=== PATIENT | male | born 1965 ===

== ENCOUNTER 2019-05-30 15:36 | Outpatient (CLI) | payer OTHER | END 2019-05-30 16:35 | disposition home or self-care (01) | LOC: LAB 15:36 | DX: R97.20 Elevated prostate specific antigen [PSA] (principal) ==

== ENCOUNTER 2019-06-08 07:11 | Outpatient (CLI) | payer OTHER | END 2019-06-08 07:21 | disposition home or self-care (01) | LOC: SONOGRAMA 07:11 | DX: C61 Malignant neoplasm of prostate (principal); R97.20 Elevated prostate specific antigen [PSA] ==

== ENCOUNTER 2019-06-24 08:13 | Outpatient (CLI) | payer OTHER | END 2019-06-24 08:15 | disposition home or self-care (01) | LOC: NUCLEAR 08:13 | DX: C61 Malignant neoplasm of prostate (principal) | CPT/HCPCS: 78320; A9503 ==

== ENCOUNTER 2019-08-10 09:58 | Outpatient (CLI) | payer OTHER | END 2019-08-10 10:06 | disposition home or self-care (01) | LOC: LAB 09:58 | DX: N39.0 Urinary tract infection, site not specified (principal); J06.9 Acute upper respiratory infection, unspecified ==

== ENCOUNTER 2019-09-06 09:45 | Inpatient (IN) | payer OTHER ==
[~2019-09-06] VITALS: Ht 172.7 cm; Wt 87.1 kg
[2019-09-12] MEDS ORDERED: OMEPRAZOLE20 MG (13:51)
== END 2019-09-14 11:36 | disposition home or self-care (01) | DRG 708 ==
LOC: O/R 09:45 → SURH 09-12 04:54
PROVIDERS: ADMIT Urology
PROC: 07BC0ZX Excision of Pelvis Lymphatic, Open Approach, Diagnostic (ICD-10-PCS; 2019-09-12)
PROC: 0VT00ZZ Resection of Prostate, Open Approach (ICD-10-PCS; principal; 2019-09-12 07:00)
DX: C61 Malignant neoplasm of prostate (principal); R97.21 Rising PSA following treatment for malignant neoplasm of prostate; R59.0 Localized enlarged lymph nodes

== ENCOUNTER 2020-07-20 14:25 | Outpatient (CLI) | payer OTHER ==
[~2020-07-20 14:25] MED LIST: OMEPRAZOLE20 MG
== END 2020-07-20 14:31 | disposition home or self-care (01) ==
LOC: LAB 14:25
PROVIDERS: ATTEND Radiology Diagnostic Radiology
DX: N20.0 Calculus of kidney (principal)

== ENCOUNTER 2020-07-23 07:14 | Outpatient (CLI) | payer OTHER | END 2020-07-23 07:30 | disposition home or self-care (01) | LOC: TOM 07:14 | PROVIDERS: ATTEND Urology | DX: R97.20 Elevated prostate specific antigen [PSA] (principal); R31.1 Benign essential microscopic hematuria; N20.0 Calculus of kidney ==